=== PATIENT | male | born 1995 | race Caucasian/White ===

== ENCOUNTER 2024-05-22 11:46 | Outpatient (CLI) | payer BC | END 2024-05-22 23:59 | disposition EMS.NT | LOC: EMS 11:46 | DX: S60.512A Abrasion of left hand, initial encounter (principal); S40.211A Abrasion of right shoulder, initial encounter; S50.811A Abrasion of right forearm, initial encounter; S90.511A Abrasion, right ankle, initial encounter; S70.311A Abrasion, right thigh, initial encounter; R42 Dizziness and giddiness; R22.0 Localized swelling, mass and lump, head; V28.09XA Other motorcycle driver injured in noncollision transport accident in nontraffic accident, initial encounter; Y92.89 Other specified places as the place of occurrence of the external cause ==

== ENCOUNTER 2024-05-22 14:14 | Emergency (ER) | payer BC, OTHER ==
[2024-05-22 14:36] VITALS: BP 128/78; O2SAT 100
--- NOTE | 2024-05-22 15:05 | XRAY Report ---
PROCEDURE: Wrist 3+V LT INDICATIONS: L wrist pain TECHNIQUE: 4 views of the wrist were acquired. COMPARISON: None. FINDINGS: Bones: No fractures or dislocations. No suspicious bony lesions. Soft tissues: No suspicious soft tissue calcifications or masses. IMPRESSION: No acute bony abnormality. Reviewed by: Sandro Cast MD on 05/22/2024 3:04 PM PDT Approved by: Sandro Cast MD on 05/22/2024 3:04 PM PDT Station ID: [id number]
--- NOTE | 2024-05-22 15:06 | CT Report ---
PROCEDURE: Head WO INDICATIONS: fall, head injury TECHNIQUE: Noncontrast 4.5 mm thick angled axial sections acquired from the foramen magnum to the vertex. For r adiation dose reduction, the following was used: automated exposure control, adjustment of mA and/or kV according to patient size. COMPARISON: None. FINDINGS: Image quality: Excellent. CSF spaces: Basal cisterns are patent. No extra-axial fluid collections. Ventricles are normal in size and shape. Brain: No midline shift. No intracranial masses or hemorrhage. Decker-white matter interface is norm al. Skull and face: Calvarium and visualized facial bones are intact, without suspicious lesions. Sinuses: Visualized sinuses and mastoids are clear. IMPRESSION: No acute intracranial pathology. Reviewed by: Sandro Cast MD on 05/22/2024 3:05 PM PDT Approved by: Sandro Cast MD on 05/22/2024 3:05 PM PDT Station ID: [id number]
--- NOTE | 2024-05-22 15:08 | CT Report ---
PROCEDURE: Cervical Spine WO INDICATIONS: fall, pain TECHNIQUE: Noncontrast 3 mm thick sections acquired from the skull base to the T4 level. Sagittal and coronal r eformats were then constructed. For radiation dose reduction, the following was used: automated exp osure control, adjustment of mA and/or kV according to patient size. COMPARISON: None. FINDINGS: Image quality: Excellent. Bones: No fractures or dislocations. Visualized superior ribs are intact. Soft tissues: Prevertebral soft tissues are normal in thickness. No paravertebral hematomas. No ap ical pneumothoraces. IMPRESSION: No acute, displaced fracture or traumatic subluxation. Reviewed by: Sandro Cast MD on 05/22/2024 3:06 PM PDT Approved by: Sandro Cast MD on 05/22/2024 3:06 PM PDT Station ID: [id number]
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
== END 2024-05-22 16:00 | disposition home or self-care (01) ==
LOC: ED 14:14
DX: S09.90XA Unspecified injury of head, initial encounter (principal); S63.502A Unspecified sprain of left wrist, initial encounter; V28.49XA Other motorcycle driver injured in noncollision transport accident in traffic accident, initial encounter; F17.200 Nicotine dependence, unspecified, uncomplicated
CPT/HCPCS: 99283; 99284